=== PATIENT | female | born 1965 | race Caucasian/White ===

== ENCOUNTER → 2018-01-23 | Outpatient (CLI) | payer OTHER ==
[~2018-01-23] MED LIST: AMIT75 PO; ISODICACE PO; TOBR.3OPSO OP; VITAMINS
[2018-01-23 14:19] LABS: Stool Occult Bld Immuno 1 Negative (NEGATIVE)
== END | disposition home or self-care (01) ==
LOC: LAB SHORT 11:35 → LAB SRC 11:35
PROVIDERS: Nurse Practitioner Family
DX: Z12.11 Encounter for screening for malignant neoplasm of colon (principal)
CPT/HCPCS: G0328

== ENCOUNTER → 2019-01-15 | Outpatient (CLI) | payer OTHER ==
[2019-01-16 15:07] LABS: HPV 16 Negative (Negative); HPV 18 Negative (Negative); HPV OTHER HR TYPES Negative (Negative)
== END | disposition home or self-care (01) ==
LOC: LAB SHORT 11:35 → LAB 11:35
PROVIDERS: Nurse Practitioner Women's Health
DX: Z12.72 Encounter for screening for malignant neoplasm of vagina (principal); Z91.89 Other specified personal risk factors, not elsewhere classified
CPT/HCPCS: 87624; G0123

== ENCOUNTER 2019-04-10 11:15 | Day surgery (SDC) | payer OTHER ==
[~2019-04-10] VITALS: Ht 167.6 cm; Wt 163.2 kg
[2019-04-10] MEDS ORDERED: Esgic Tablet1 EACH PO (11:57)
[2019-04-10] MEDS ORDERED: Cymbalta20 MG PO (11:58)
[2019-04-10] MEDS ORDERED: CLIMARA1 EACH TD (11:59)
--- NOTE | 2019-04-10 15:04 | NUR ---
04/10/19 1504 Hoda Shepherd 1430 PT. VERBALIZES READY TO GO HOME. PT. VERBALIZES FEELING TINGLING & NUMBING IN HER LEFT FOOT. POSTOP SHOE INTACT.
== END 2019-04-10 14:45 | disposition home or self-care (01) ==
LOC: ORSCSDS 11:15
PROVIDERS: Podiatrist
PROC: 01NH0ZZ Release Peroneal Nerve, Open Approach (ICD-10-PCS; principal; 2019-04-10 12:30)
DX: G57.62 Lesion of plantar nerve, left lower limb (principal); D64.9 Anemia, unspecified; Z98.84 Bariatric surgery status; M19.072 Primary osteoarthritis, left ankle and foot; Z79.899 Other long term (current) drug therapy
CPT/HCPCS: J1100; J2001; J2250; J2704; J3010; J7120

== ENCOUNTER → 2020-02-23 | Outpatient (CLI) | payer OTHER ==
[~2020-02-23] MED LIST changes: +CLIMARA1 EACH TD; +Cymbalta20 MG PO; +Esgic Tablet1 EACH PO
== END | disposition home or self-care (01) ==
LOC: PLD 13:46 → LAB SHORT 13:46
DX: M79.89 Other specified soft tissue disorders (principal)
CPT/HCPCS: 88305

== ENCOUNTER 2020-06-13 11:05 | Emergency (ER) | payer OTHER ==
[~2020-06-13] VITALS: Ht 167.6 cm; Wt 78.0 kg
== END 2020-06-13 13:25 | disposition home or self-care (01) ==
LOC: ER 11:05
DX: S00.33XA Contusion of nose, initial encounter (principal); Z88.0 Allergy status to penicillin; Z88.1 Allergy status to other antibiotic agents; Z88.6 Allergy status to analgesic agent; Z79.899 Other long term (current) drug therapy; W54.1XXA Struck by dog, initial encounter
CPT/HCPCS: 99283

== ENCOUNTER → 2021-04-11 | Outpatient (CLI) | payer OTHER | END | disposition home or self-care (01) | LOC: LAB SHORT 10:43 | DX: G58.9 Mononeuropathy, unspecified (principal) | CPT/HCPCS: 88304 ==